=== PATIENT | female | born 1935 | race Caucasian/White ===

== ENCOUNTER 2018-08-20 23:48 | Inpatient (IN) ==
[2018-08-21] MEDS ORDERED: NS 1,000 ML IV ONE ×2 (00:48→20:28)
[2018-08-21 01:54] LABS: BASO# 0.04 X1000 (0.0-0.2); BASO% 0.2 % (0.0-0.8); EOS# 0.29 X1000 (0.0-0.7); EOS% 1.3 % (0.0-10.0); HEMOGLOBIN 12.3 g/dL (12.0-16.0); IMM GRAN# 1.63 X1000 (0.0-0.04); IMM GRAN% 7.4 % (0.0-0.5); LYMPH% 7.2 % (20.5-51.1); MCH 30.1 PG (27-31); MCHC 34.2 g/dL (33-37); MONO# 2.97 X1000 (0.11-0.59); MONO% 13.5 % (1.7-9.3); MPV 9.8 FL (7.4-10.4); NEUT# 15.54 X1000 (1.4-6.5); NEUT% 70.4 % (42.2-75.2); PLT 386 X1000 (130-400); RBC 4.09 XMIL (4.2-5.4); RDW 14.5 % (11.5-14.5); WBC 22.07 X1000 (4.8-10.8)
--- NOTE | 2018-08-21 02:09 | PROVIDER DOCUMENTATION ---
This chart was entered by Beba Mccormack Scribe, acting as scribe for Ruben Parks MD. HPI-General Adult - General Source: family Unable to obtain history due to:: altered (alzheimers) - History of Present Illness -Gen Adult Nature of Presenting Problems: pt is a83 yr old female presenting via EMS from [facility]. family reports pt has had n /v/d x 3 days, hx of Alzheimers declining over last 2 months. pt has been in/ out of hospital multiple times over last few months including 1 admission at [facility] where she was unresponsive/unconscious x several days and discharged back to [facility] still unresponsive, pt has been admitted x 3 for dehydration and UTI at [facility] recently. on exam pt does complain of right side pain. Location of Pain/Injury: reports: abdomen Onset/Duration: reports: unsure Timing: reports: still present Context/Activities at Onset: reports: rest Modifying Factors: improves with: nothing Associated Symptoms: reports: diarrhea, genitourinary problems, vomiting, other (decreased responsivness). denies: fever/chills Similar Symptoms Previously?: Yes Recently seen or treated by another doctor?: Yes <Ruben Parks - Last Filed: 08/21/18 02:06> <Neymar Pedroza - Last Filed: 08/21/18 05:54> - General Chief Complaint: N/V/D Stated Complaint: NVD Time Seen by Provider: 08/20/18 23:56 Allergies/Adverse Reactions: Patient Allergies Allergy/AdvReac Type Severity Reaction Status Date / Time No Known Allergies Allergy Verified 08/21/18 02:47 Home Medications: Home Medication List Medication Instructions Recorded Confirmed Last Taken Type ATORVAstatin [Lipitor] 40 mg PO DAILY 08/21/18 08/21/18 Unknown History Acetaminophen [Tylenol] 325 mg PO PRN PRN 08/21/18 08/21/18 Unknown History Amlodipine Besylate/Benazepril 1 cap PO DAILY 08/21/18 08/21/18 Unknown History [Amlodipine-Benazepril 5-40 mg] Aspirin 325 mg PO DAILY 08/21/18 08/21/18 Unknown History Bismuth Subsalicylate 15 ml PO Q4H PRN 08/21/18 08/21/18 Unknown History [Pepto-Bismol] Calcium Carbonate/Vitamin D3 1 tab PO DAILY 08/21/18 08/21/18 Unknown History [Calcium 600 + Vit D 400 Tablet] Cyanocobalamin 1,000 microgm IM ORDERED 08/21/18 08/21/18 Unknown History Docusate Sodium 100 mg PO DAILY 08/21/18 08/21/18 Unknown History Ferrous Sulfate 325 mg PO TID 08/21/18 08/21/18 Unknown History Guaifenesin [Robitussin] 5 ml PO PRN PRN 08/21/18 08/21/18 Unknown History Hydrochlorothiazide 12.5 mg PO DAILY 08/21/18 08/21/18 Unknown History Hydrocodone/Acetaminophen [[place] 1 tab PO PRN PRN 08/21/18 08/21/18 Unknown History 5-325 Tablet] Lactobacillus Acidophilus 0.5 mg PO DAILY 08/21/18 08/21/18 Unknown History [Acidophilus Probiotic] Mag Hydrox/Al Hydrox/Simeth 30 ml PO PRN PRN 08/21/18 08/21/18 Unknown History [Almacone-2 Liquid] Magnesium Hydroxide [Milk of 1 ml PO PRN PRN 08/21/18 08/21/18 Unknown History Magnesia] Meclizine [Antivert] 12.5 mg PO DAILY 08/21/18 08/21/18 Unknown History Memantine HCl [Memantine HCl ER] 28 mg PO DAILY 08/21/18 08/21/18 Unknown History Metronidazole [Flagyl] 500 mg PO TID 08/21/18 08/21/18 Unknown History Morphine 20 mg IN PRN PRN 08/21/18 08/21/18 Unknown History Omeprazole 40 mg PO DAILY 08/21/18 08/21/18 Unknown History Ondansetron [Zofran] 4 mg PO PRN PRN 08/21/18 08/21/18 Unknown History Polyethylene Glycol 3350 17 gm PO DAILY 08/21/18 08/21/18 Unknown History Potassium Chloride-0.45% NaCl 20 meq PO BID 08/21/18 08/21/18 Unknown History [Potassium Cl 20 Meq-0.45% NaCl] Promethazine [Phenergan] 25 mg PO PRN PRN 08/21/18 08/21/18 Unknown History Rivastigmine [Exelon 13.3MG/24Hrs] 1 patch TOP 08/21/18 Unknown History Sertraline HCl 50 mg PO DAILY 08/21/18 08/21/18 Unknown History Vit D3-Vit K/Berberine/Hops 50,000 unit PO 08/21/18 Unknown History [Ostera Tablet] Review of Systems - Adult - REVIEW OF SYSTEMS - ADULT ROS:: limited per condition Constitutional: reports: no symptoms reported Eyes: reports: no symptoms reported Ears, Nose, Mouth & Throat: reports: no symptoms reported Cardiovascular: reports: no symptoms reported Respiratory: reports: no symptoms reported Gastrointestinal: reports: abdominal pain, diarrhea, vomiting Genitourinary: reports: no symptoms reported Musculoskeletal: reports: no symptoms reported Integumentary: reports: no symptoms reported Neurological: reports: other (increased confusion, decreased responsivness) Psychiatric: reports: no symptoms reported Endocrine: reports: no symptoms reported Hematologic/Lymphatic: reports: no symptoms reported Allergic/Immunologic: reports: no symptoms reported All Other Systems: Reviewed and Negative <Ruben Parks - Last Filed: 08/21/18 02:06> Past History - Adult - PAST MEDICAL HISTORY-ADULT Review of Records: reports: Old Records Reviewed, Nursing Assessment Review, Medications Reviewed, Social history reviewed & non-contributory. Major Childhood Illnesses: reports: denies history Cardiovascular: reports: denies history Respiratory: reports: denies history Gastrointestinal: reports: denies history Obstetrical/Gynecological: reports: denies history Genitourinary: reports: denies history Musculoskeletal: reports: denies history Neurological: reports: denies history Endocrine/Immune: reports: denies history Other Conditions: reports: denies history - IMMUNIZATION STATUS Childhood Immunizations: See Nurse Assessment Flu Vaccine: See Nurse Assessment - FAMILY HISTORY Family History: reviewed, not pertinent - SOCIAL HISTORY Living Situation: care facility <Ruben Parks - Last Filed: 08/21/18 02:06> Physical Exam-General - PHYSICAL EXAM-ADULT Initial Vital Signs Reviewed: Yes - CONSTITUTIONAL General Appearance: no apparent distress, obtunded - HEAD, EARS, NOSE, MOUTH & THROAT HENMT: normocephalic/atraumatic, moist mucous membranes - NECK Neck: supple - RESPIRATORY Respiratory: lungs clear, normal breath sounds - CARDIOVASCULAR Cardiovascular: normal peripheral pulses, regular rate, rhythm - GASTROINTESTINAL (ABDOMEN) Abdominal Exam: normal bowel sounds, soft, tenderness (epigastric tenderness, RUQ tenderness) - LYMPHATIC Lymphatic: no adenopathy - SKIN Integumentary: normal color, normal turgor - NEUROLOGIC Neurologic: grossly normal, no motor/sensory deficits <Ruben Parks - Last Filed: 08/21/18 02:06> Progress - PLAN OF CARE/RESULTS Progress/Plan/Lab Results: Vital Signs - 8 hr 08/20/18 23:48 08/21/18 00:28 Temperature 98.1 F Pulse Rate 95 H Respiratory Rate 15 Blood Pressure 97/66 O2 Sat by Pulse Oximetry 94 L Orders Category Date Time Status Saline Loc NOW Care 08/21/18 00:46 Active CHEST-2 VIEWS [RAD] Stat Exams 08/21/18 00:[address] ABD/PELVIS W/IV CONT ONLY [CT] Stat Exams 08/21/18 00:[address] HEAD W/O CONTRAST [CT] Stat Exams 08/21/18 00:46 Ordered BLOOD CULTURE [BLDCUL] Stat Lab 08/21/18 01:16 Ordered CBC WITH ELECTRONIC DIFF [HEME] Stat Lab 08/21/18 01:16 Ordered COMPREHENSIVE METABOLIC PANEL [CHEM] Stat Lab 08/21/18 01:16 Ordered LACTATE, PLASMA [CHEM] Stat Lab 08/21/18 01:16 Ordered URINALYSIS W/POSS RFLX CULT [URINALYSIS] Stat Lab 08/21/18 00:46 Uncollected 0.9% Sodium Chloride Inj [Ns] 1,000 ml Med 08/21/18 00:48 Active IV 999 mls/hr EKG [EKG] Stat Ther 08/21/18 00:46 Ordered Result Diagrams: 08/21/18 01:16 - CHANGE OF SHIFT REPORT (ED Provider) 1 Report Given and Care Transferred to:: Dr Claire Pedroza Time of Transfer: 02:00 Items Pending: Labs, XRAY Results, CT/MRI Results, Physician Consult/Arrival <Ruben Parks - Last Filed: 08/21/18 02:06> - PLAN OF CARE/RESULTS Progress/Plan/Lab Results: Vital Signs - 8 hr 08/20/18 23:48 08/21/18 00:28 08/21/18 02:21 Temperature 98.1 F Pulse Rate 95 H 88 Respiratory Rate 15 Blood Pressure 97/66 O2 Sat by Pulse Oximetry 94 L 95 Laboratory Results - last 24 hr 08/21/18 08/21/18 08/21/18 01:06 01:06 01:16 WBC 22.07 H RBC 4.09 L Hgb 12.3 Hct 36.0 L MCV 88.0 MCH 30.1 MCHC 34.2 RDW Std Deviation 14.5 Plt Count 386 MPV 9.8 Immature Gran % (Auto) 7.4 H Neut % (Auto) 70.4 Lymph % (Auto) 7.2 L [place] % (Auto) 13.5 H Eos % (Auto) 1.3 Baso % (Auto) 0.2 Immature Gran # (Auto) 1.63 H Neut # (Auto) 15.54 H Lymph # (Auto) 1.60 [place] # (Auto) 2.97 H Eos # (Auto) 0.29 Baso # (Auto) 0.04 Sodium 135 L Potassium 4.8 Chloride 100 Carbon Dioxide 14 L Anion Gap 21 BUN 58 H Creatinine 4.3 H Estimated GFR/1.73 m2 10 BUN/Creatinine Ratio 13 Glucose 147 H Calculated Osmolality 289 Calcium 9.2 Total Bilirubin 0.40 AST 11 ALT 11 Alkaline Phosphatase 62 Total Protein 6.2 L Albumin 2.9 L Globulin 3.0 Albumin/Globulin Ratio 1.0 Plasma Lactate 1.4 Urine Source Urine Color Urine Clarity Urine Turbidity Urine pH Ur Specific [place] Urine Protein Ur Glucose (Stick) Urine Ketones Ur Ketones (Stick) Urine Blood Urine Nitrite Urine Bilirubin Urine Urobilinogen Urobilinogen Dipstick Urine Leukocytes Urine WBC (Auto) Urine RBC (Auto) U Epithel Cells (Auto) Urine Bacteria (Auto) Urine Microscopic RBC Urine WBC Urine Microscopic WBC Ur Epithelial Cells Urine Bacteria Urine Glucose 08/21/18 08/21/18 03:20 03:20 WBC RBC Hgb Hct MCV MCH MCHC RDW Std Deviation Plt Count MPV Immature Gran % (Auto) Neut % (Auto) Lymph % (Auto) [place] % (Auto) Eos % (Auto) Baso % (Auto) Immature Gran # (Auto) Neut # (Auto) Lymph # (Auto) [place] # (Auto) Eos # (Auto) Baso # (Auto) Sodium Potassium Chloride Carbon Dioxide Anion Gap BUN Creatinine Estimated GFR/1.73 m2 BUN/Creatinine Ratio Glucose Calculated Osmolality Calcium Total Bilirubin AST ALT Alkaline Phosphatase Total Protein Albumin Globulin Albumin/Globulin Ratio Plasma Lactate Urine Source Cancelled CATH Urine Color Cancelled YELLOW Urine Clarity CLEAR Urine Turbidity Cancelled Urine pH Cancelled 5.0 Ur Specific [place] Cancelled 1.025 Urine Protein Cancelled TRACE A Ur Glucose (Stick) Cancelled Urine Ketones TRACE Ur Ketones (Stick) Cancelled Urine Blood Cancelled NEGATIVE Urine Nitrite Cancelled NEGATIVE Urine Bilirubin Cancelled NEGATIVE Urine Urobilinogen NORMAL Urobilinogen Dipstick Cancelled Urine Leukocytes Cancelled Urine WBC (Auto) Cancelled Urine RBC (Auto) Cancelled U Epithel Cells (Auto) Cancelled Urine Bacteria (Auto) Cancelled Urine Microscopic RBC <10 Urine WBC 1+ A Urine Microscopic WBC <10 Ur Epithelial Cells <10 Urine Bacteria 4+ Urine Glucose NEGATIVE Orders Category Date Time Status [facility] Routine AdmDCTranf 08/21/18 05:12 Active Activity - Up with Assistance ORDERED Care 08/21/18 05:12 Active Intake and Output-Strict ORDERED Care 08/21/18 05:12 Active Resuscitation Status Routine Care 08/21/18 05:16 Ordered Saline Loc NOW Care 08/21/18 00:46 Active Vital Signs Order Q 8-HR ASSESS Care 08/21/18 05:12 Active Z-Document. for Tele Applied ORDERED Care 08/21/18 05:13 Active NPO Diet 08/21/18 05:14 Active CHEST-PORTABLE [RAD] Stat Exams 08/21/18 03:[address] ABDOMEN/PELVIS W/O CONTRAST [CT] Stat Exams 08/21/18 03:[address] HEAD W/O CONTRAST [CT] Stat Exams 08/21/18 00:46 Completed BLOOD CULTURE [BLDCUL] Stat Lab 08/21/18 01:16 Ordered CBC WITH DIFF [HEME] Routine Lab 08/22/18 06:00 Ordered CBC WITH ELECTRONIC DIFF [HEME] Stat Lab 08/21/18 01:16 Completed COMPREHENSIVE METABOLIC PANEL [CHEM] Routine Lab 08/22/18 06:00 Ordered COMPREHENSIVE METABOLIC PANEL [CHEM] Stat Lab 08/21/18 01:06 Completed LACTATE, PLASMA [CHEM] Stat Lab 08/21/18 01:06 Completed PROTIME WITH INR [COAG] Routine Lab 08/22/18 06:[address] W/POSS RFLX CULT [URINALYSIS] Stat Lab 08/21/18 03:20 Completed URINE CULTURE [RM] Routine Lab 08/21/18 03:51 Ordered 0.9% Sodium Chloride Inj [Ns] 1,000 ml Med 08/21/18 05:15 Ordered IV 100 mls/hr 0.9% Sodium Chloride Inj [Ns] 1,000 ml Med 08/21/18 00:48 Discontinued IV 999 mls/hr 0.9% Sodium Chloride Inj [Ns] 500 ml Med 08/21/18 03:15 Discontinued IV 999 mls/hr Acetaminophen [Tylenol] Med 08/21/18 05:12 Ordered 650 mg PO Q6H PRN PRN CefTRIAXONE [Rocephin] 1 gm Med 08/21/18 03:15 Discontinued 0.9% Sodium Chloride Inj [Ns] 50 ml IV NOW Heparin Med 08/21/18 05:15 Ordered 5,000 unit SUBQ Q12H Piperacillin/Tazobactam [Zosyn] 2.25 gm Med 08/21/18 05:15 Ordered 0.9% Sodium Chloride Inj [Ns] 50 ml IV Q6H Promethazine [Phenergan] Med 08/21/18 05:12 Ordered 12.5 mg PO Q6H PRN PRN Telemetry [OM.EQ] Routine Oth 08/21/18 05:12 Active EKG [EKG] Stat Ther 08/21/18 00:46 Ordered Result Diagrams: 08/21/18 01:16 08/21/18 01:06 - CONSULTS/PCP/HOSPITALIST Notification #1 *Consult/PCP/Hospitalist*: DR VARMA Time Discussed: 05:18 Consult Disposition: Admit (ICU) <Neymar Pedroza - Last Filed: 08/21/18 05:54> Departure <Ruben Parks - Last Filed: 08/21/18 02:06> - Departure Date of Disposition Decision: 08/21/18 Time of Disposition Decision: 05:52 Certified Medical Emergency: Emergent - Critical Care Note This patient required my direct & personal management of CC.: Yes Total Time (mins): 33 Critical Care Statement: This patient required my direct personal management to treat or rule out processes, the absence of which, could potentiallly result in sudden, clinically significant life or limb threatening deterioration. <Neymar Pedroza - Last Filed: 08/21/18 05:54> - Departure DIAGNOSIS: Altered mental status, Colitis, Leukocytosis, Dehydration Disposition: ADMITTED INPATIENT 09 Condition: Fair Referrals and Follow-Ups: Louie Bunch MD [Primary Care Provider] - Attestation - Physician/ JAREN Attestation Patient care was provided by Advanced Practice Provider:: No The physician spent face to face time with patient:: Yes Advanced Practice Provider documentation review:: Supervising physician onsite and consulted in the evaluation and care of this patient. The physician did have a face to face encounter with the patient. <Ruben Parks - Last Filed: 08/21/18 02:06> - Physician/ JAREN Attestation Patient care was provided by Advanced Practice Provider:: No The physician spent face to face time with patient:: Yes Advanced Practice Provider documentation review:: Supervising physician onsite and consulted in the evaluation and care of this patient. The physician did have a face to face encounter with the patient. <Neymar Pedroza - Last Filed: 08/21/18 05:54> This chart was documented by the indicated scribe, (Beba Mccormack Scribe) and accurately reflects the services I performed and decisions made by , Ruben Parks MD, as attested by the provider's signature.
[2018-08-21 02:53] LABS: ALBUMIN 2.9 g/dL (3.5-5.0); CALCIUM 9.2 mg/dL (8.8-10.2); CREATININE 4.3 mg/dL (0.5-0.9); POTASSIUM 4.8 mmol/L (3.5-5.1); TOTAL BILIRUBIN 0.4 mg/dL (0.20-1.00); TOTAL PROTEIN 6.2 g/dL (6.3-8.3)
[2018-08-21] MEDS ORDERED: ROCEPHIN 1 GM in NS 50 ML IV ONE (03:15)
[2018-08-21] MEDS ORDERED: NS 500 ML IV ONE (03:15)
[2018-08-21 03:49] LABS: URINE BACTERIA 4+ /HFP; URINE EPITHELIAL CELLS <10 /HPF (<10); URINE RBC <10 /HPF (<10); URINE SOURCE CATH; URINE WBC <10 /HPF (<10)
[2018-08-21 03:50] LABS: BILIRUBIN URINE NEGATIVE (NEGATIVE); BLOOD URINE NEGATIVE (NEGATIVE); CLARITY CLEAR (CLEAR); COLOR YELLOW; GLUCOSE URINE NEGATIVE (NEGATIVE); KETONE URINE TRACE mg/dL (NEGATIVE); LEUKOCYTES URINE 1+ (NEGATIVE); NITRITE URINE NEGATIVE (NEGATIVE); PROTEIN URINE TRACE mg/dL (NEGATIVE); SP GRAVITY URINE 1.025; UROBILINOGEN URINE NORMAL
--- NOTE | 2018-08-21 04:22 | Diag Imaging Result Doc PS360 ---
EXAM: CT HEAD W/O CONTRAST HISTORY: ams TECHNIQUE: CT head without contrast COMPARISON: None. FINDINGS: No parenchymal hemorrhage. No epidural or subdural hematoma. No subarachnoid hemorrhage. There is atrophy. No mass identified on this noncontrasted exam. No hydrocephalus. No sinus opacification. IMPRESSION: 1.No hemorrhage 2.Mild atrophy This exam was performed using automated exposure control, adjustment of mA or kV according to patient size, and/or use of iterative reconstruction technique. Electronically signed by Cristhian Billings 08/21/2018 4:19 AM
--- NOTE | 2018-08-21 04:30 | Diag Imaging Result Doc PS360 ---
EXAM: CT ABDOMEN/PELVIS W/O CONTRAST HISTORY: TENDER LOW ABD TECHNIQUE: CT abdomen and pelvis without intravenous contrast COMPARISON: 03/02/2012 FINDINGS: No calcified gallstones or adjacent inflammation. Normal noncontrasted liver. Normal spleen, pancreas, and adrenal glands. No perinephric inflammation. No renal stones. No hydronephrosis. No aortic aneurysm. There is diffuse colonic wall thickening with adjacent inflammation from the cecum to the rectum. The small bowel loops appear normal. Trace fluid. The uterus has been removed. No pelvic mass. The urinary bladder is not distended. IMPRESSION: Diffuse colitis This exam was performed using automated exposure control, adjustment of mA or kV according to patient size, and/or use of iterative reconstruction technique. Electronically signed by Cristhian Billings 08/21/2018 4:28 AM
--- NOTE | 2018-08-21 04:34 | Diag Imaging Result Doc PS360 ---
EXAM: CHEST-PORTABLE HISTORY: TENDER LOW ABD TECHNIQUE: Portable chest single view COMPARISON: 06/25/2018 FINDINGS: The lungs are well expanded. The heart is not enlarged. The vessels are not distended. There are no infiltrates. No effusion identified. IMPRESSION: Negative exam. Electronically signed by Cristhian Billings 08/21/2018 4:32 AM
[2018-08-21] MEDS ORDERED: PHENERGAN PO PRN (05:12)
[2018-08-21] MEDS ORDERED: TYLENOL PO PRN (05:12)
[2018-08-21] MEDS ORDERED: NS 0 ML ONE (05:26)
[2018-08-21] MEDS: HEPARIN SUBQ SCH ×2 (05:39→16:32)
[2018-08-21] MEDS: NS 1,000 ML IV SCH ×3 (05:40→20:56)
[2018-08-21] MEDS: ZOSYN 2.25 GM in NS 50 ML IV SCH ×4 (05:41→23:54)
[2018-08-21 05:47] LABS: ACETAMINOPHEN < 1.2 ug/mL (10-30); SALICYLATES < 3.00 mg/dL (3-10)
[2018-08-21 06:08] LABS: UR CREAT RANDOM 300.1 mg/dL (11-20)
--- NOTE | 2018-08-21 06:34 | EKG Report ---
Test Performed on : 08/21/2018 00:54:22 AM Test Reason : ams Blood Pressure : / mmHG Vent. Rate : 081 BPM Atrial Rate : 081 BPM P-R Int : 134 ms QRS Dur : 084 ms QT Int : 380 ms P-R-T Axes : 085 072 068 degrees QTc Int : 441 ms Sinus rhythm. with premature atrial complexes. Otherwise normal ECG When compared with ECG of 03-JUL-2010 15:14, premature atrial complexes. are now present Unconfirmed Result
[2018-08-21] MEDS ORDERED: TYLENOL LIQUID ONE (07:50)
--- NOTE | 2018-08-21 09:02 | Diag Imaging Result Doc PS360 ---
EXAM: US RENAL 2 (RETROPER) COMPLETE - 08/21/2018 HISTORY: tiffany/arf TECHNIQUE: Bilateral renal ultrasound COMPARISON: 09/16/2011 ultrasound abdomen FINDINGS: The right kidney measures 9 x 3.5 x 4.5 cm in size. The left kidney measures 9.8 x 3.8 x 4.5 cm in size. There is no renal mass, stone, or hydronephrosis identified. Images of the urinary bladder demonstrate no lesion. IMPRESSION: No visible abnormality. No hydronephrosis. Electronically signed by Balaji Marshall 08/21/2018 9:00 AM
--- NOTE | 2018-08-21 10:45 | EKG Report ---
Test Performed on : 08/21/2018 06:04:13 AM Test Reason : psych Blood Pressure : / mmHG Vent. Rate : 088 BPM Atrial Rate : 088 BPM P-R Int : 134 ms QRS Dur : 084 ms QT Int : 362 ms P-R-T Axes : 087 077 074 degrees QTc Int : 438 ms Normal sinus rhythm. Normal ECG When compared with ECG of 21-AUG-2018 00:54, (Unconfirmed) premature atrial complexes. are no longer present Unconfirmed Result
--- NOTE | 2018-08-21 11:44 | HISTORY AND PHYSICAL ---
PRIMARY CARE PHYSICIAN: [facility] facility physician. CHIEF COMPLAINT: Nausea, vomiting and diarrhea for three days that progressively worsened. HISTORY OF PRESENT ILLNESS: This is an 83-year-old female who presents to [facility] ER via EMS from [facility] [place]. Family reports that the patient has had nausea, vomiting and diarrhea for three days that has progressively worsened. It is noted that she has been declining since [place] time when she got diagnosed with a urinary tract infection, and was sent to [facility] and was unresponsive for several days, but then discharged back to the senior living still unresponsive. She has been admitted three different times for dehydration and UTI at [facility] recently also. During this evaluation in the ER, her white blood cell count was noted to be 22.07. BUN was 58 with a creatinine of 4.3. Urinalysis was negative except for 1+ white blood cells, 4+ bacteria. CT of the abdomen and pelvis showed a diffuse colitis so she has been admitted for further evaluation and treatment. PAST MEDICAL HISTORY: Hypertension, hyperlipidemia, constipation, iron deficiency, Alzheimer's dementia, GERD, depression, and vitamin D deficiency. PAST SURGICAL HISTORY: Unknown. FAMILY HISTORY: Reviewed and noncontributory. SOCIAL HISTORY: She currently lives in a long-term care facility. Denies any tobacco, alcohol or illicit drug use. ALLERGIES: She has no known drug allergies. HOME MEDICATIONS: A current list will need to be obtained and reviewed. We will restart as appropriate. Nursing to update and confirm home medications. LABORATORY DATA: White blood cell count of 22.07, hemoglobin 12.3, hematocrit 36, and platelets 386,000. Sodium 135, potassium 4.8, chloride 100, CO2 14, BUN of 58, creatinine 4.3, and glucose 147. Plasma lactate of 1.4. Urinalysis with 1+ white blood cells, 4+ bacteria. Random creatinine of 300.1, random sodium 13, random BUN 12. Salicylate level was less than 3. Tylenol level less than 1.2. Acetone level was negative. Head CT showed no hemorrhage and mild atrophy. Abdomen and pelvic CT showed diffuse colitis. Chest x-ray was with negative exam. Renal ultrasound showed no visible abnormality. No hydronephrosis. EKG on arrival showed sinus rhythm with PACs at 81. REVIEW OF SYSTEMS: Unable to obtain from patient. PHYSICAL EXAMINATION: VITAL SIGNS: On arrival, she had a temperature of 98.1 degrees, pulse 95, respirations 15, blood pressure was 97/66, saturating 94% on room air. Currently, blood pressure is up to 115/60. GENERAL: This is an 83-year-old female who is lying in the bed and answers questions appropriately. HEENT: Normocephalic, atraumatic. Normal ENT inspection. Oropharynx and nares are clear. EYES: Pupils are equal, round, and reactive to light and accommodation. Extraocular movements are intact. NECK: Normal inspection. Normal range of motion. LUNGS: Clear to auscultation bilaterally with equal lung expansion and chest wall movement. ABDOMEN: Soft. There are some mild tenderness to palpation as patient is noted to grimace with palpation mildly. Bowel sounds are present x4 quadrants. MUSCULOSKELETAL: Unable to assess strength at this time due to altered mental status. NEUROLOGICAL: Cranial nerves 2-12 appear grossly intact. ASSESSMENT: 1. Colitis. 2. Leukocytosis secondary to #1. 3. Acute kidney injury. 4. Altered mental status with metabolic encephalopathy, multifactorial. PLAN: She has been admitted to the medical unit at [facility], and placed on telemetry. NPO. The patient placed on Zosyn at 2.25 g IV q.6 and Flagyl 500 mg IV q.8. We will have nursing to update and confirm her home medications. She is on heparin 5000 units subcutaneously q.12, normal saline at 100 mL an hour. We will recheck a CBC, CMP, PT with INR in the morning. We are going to do an EOS urine smear and urine culture, and blood cultures x2 are pending. Further orders after being seen by attending. Dictated by CALE Yang for Alexandre Bueno MD cc: CALE Yang MD
[2018-08-21] MEDS: FLAGYL 500 MG/NS 500 MG/100 ML IVPB IV SCH ×2 (11:54→20:38)
--- NOTE | 2018-08-21 16:26 | HISTORY AND PHYSICAL ---
ADDENDUM: I saw the patient [id number] and agree with the assessment and plan of nurse practitioner, Natasha Lemons. This is an 83-year-old female who is admitted with sepsis secondary to colitis. She has significant white blood cell count elevation of 22,000 with 70% neutrophils. She has been admitted and has been started on IV fluids. She will also receive Zosyn and metronidazole intravenously. Supportive care will be provided to her and we are going to keep her n.p.o. at this time and hold all her oral medications. Further recommendations will be given as per hospital course. cc: Alexandre Bueno MD
[2018-08-22] MEDS: FLAGYL 500 MG/NS 500 MG/100 ML IVPB IV SCH ×3 (03:47→20:58)
[2018-08-22] MEDS: NS 1,000 ML IV SCH ×2 (03:47→13:07)
[2018-08-22] MEDS ORDERED: NS 500 ML IV ONE (04:08)
[2018-08-22 05:43] LABS: BASO# 0.03 X1000 (0.0-0.2); BASO% 0.1 % (0.0-0.8); EOS# 0.19 X1000 (0.0-0.7); EOS% 0.7 % (0.0-10.0); HEMATOCRIT 32.8 % (37.0-47.0); HEMOGLOBIN 10.6 g/dL (12.0-16.0); IMM GRAN# 0.26 X1000 (0.0-0.04); LYMPH# 0.95 X1000 (1.2-3.4); LYMPH% 3.5 % (20.5-51.1); MCH 29.5 PG (27-31); MCHC 32.3 g/dL (33-37); MCV 91.4 FL (81-99); MONO# 1.88 X1000 (0.11-0.59); MPV 10.3 FL (7.4-10.4); NEUT# 23.46 X1000 (1.4-6.5); NEUT% 87.7 % (42.2-75.2); PLT 295 X1000 (130-400); RBC 3.59 XMIL (4.2-5.4); RDW 15.1 % (11.5-14.5); WBC 26.77 X1000 (4.8-10.8)
[2018-08-22] MEDS: HEPARIN SUBQ SCH ×2 (05:50→17:24)
[2018-08-22] MEDS: ZOSYN 2.25 GM in NS 50 ML IV SCH ×4 (05:51→23:29)
[2018-08-22 06:09] LABS: INR 1.22
[2018-08-22 06:29] LABS: ALBUMIN 1.6 g/dL (3.5-5.0); CALCIUM 7.3 mg/dL (8.8-10.2); CREATININE 2.4 mg/dL (0.5-0.9); POTASSIUM 3.9 mmol/L (3.5-5.1); TOTAL BILIRUBIN 0.2 mg/dL (0.20-1.00); TOTAL PROTEIN 4.3 g/dL (6.3-8.3)
[2018-08-22 07:52] LABS: BANDS 4 % (0-1); LYMPHS 10 % (21-51); MONO 2 % (1-9); SEGS 84 % (42-75)
[2018-08-22] MEDS ORDERED: ZOFRAN IV PRN (09:33)
[2018-08-22] MEDS ORDERED: ZOSYN ONE (09:58)
--- NOTE | 2018-08-22 14:23 | PROGRESS NOTE ---
DATE: 08/22/2018 SUBJECTIVE: The patient remains somewhat nonresponsive, although she does respond to painful stimuli. She is not able to communicate, however. OBJECTIVE: Vital signs: Temperature is 98.5 degrees, pulse 84 per minute, respiratory rate 24 per minute, blood pressure 112/46, pulse oximetry 92% on room air. General: The patient remains kind of comatose, replying only to painful stimuli. She is not able to communicate. Cardiovascular: First and second heart sounds are audible without any murmurs or gallops. Respiratory: No respiratory distress noted. Bilateral lung air entry is moderately decreased, but there are no rales or rhonchi present on auscultation. Gastrointestinal: Abdomen is soft and moderately tender on deep palpation all over. No bowel sounds are present. DIAGNOSTIC DATA: CBC shows WBC count of 26.77 with 87.7% neutrophils. Hemoglobin and hematocrit are 10.6 and 32.8, respectively. Chemistry showed BUN and creatinine of 53 and 2.4, respectively. This is an improvement of BUN and creatinine of 58 and 4.3, respectively, done only yesterday. Albumin level is low at 1.6. Calcium levels were found to be low at 7.3 as well. The rest of the chemistry is nondiagnostic. IMPRESSION: 1. Septic shock. 2. Metabolic encephalopathy. 3. Acute kidney injury. 4. Colitis. PLAN: The patient's condition remains critically, although it is slowly and gradually getting better. She will continue with Zosyn and Flagyl intravenously, and we will continue to provide her fluid resuscitation. I had a lengthy discussion with her son who agrees with the treatment being provided here and is completely satisfied. I had a discussion with him about her resuscitation status, and he confirmed that the patient is a DNR level 1. We will continue providing her supportive care, and I believe her condition should start getting better even further in the next 1 to 2 days. cc: Alexandre Bueno MD
[2018-08-23] MEDS: NS 1,000 ML IV SCH ×2 (01:55→06:34)
[2018-08-23] MEDS: FLAGYL 500 MG/NS 500 MG/100 ML IVPB IV SCH ×3 (03:33→22:00)
[2018-08-23] MEDS ORDERED: TYLENOL LIQUID PO PRN (04:19)
[2018-08-23] MEDS: HEPARIN SUBQ SCH ×2 (05:07→17:10)
[2018-08-23] MEDS: ZOSYN 2.25 GM in NS 50 ML IV SCH ×2 (05:07→10:44)
[2018-08-23 07:19] LABS: BASO# 0.04 X1000 (0.0-0.2); BASO% 0.1 % (0.0-0.8); EOS# 0.01 X1000 (0.0-0.7); HEMATOCRIT 34.5 % (37.0-47.0); HEMOGLOBIN 11.3 g/dL (12.0-16.0); LYMPH# 1.02 X1000 (1.2-3.4); MCHC 32.8 g/dL (33-37); MCV 91.5 FL (81-99); MONO# 1.41 X1000 (0.11-0.59); MONO% 4.2 % (1.7-9.3); MPV 10.2 FL (7.4-10.4); NEUT# 30.02 X1000 (1.4-6.5); NEUT% 89.7 % (42.2-75.2); PLT 322 X1000 (130-400); RBC 3.77 XMIL (4.2-5.4); RDW 15.7 % (11.5-14.5)
[2018-08-23 07:58] LABS: ALBUMIN 2.1 g/dL (3.5-5.0); CREATININE 1.8 mg/dL (0.5-0.9); POTASSIUM 3.5 mmol/L (3.5-5.1); TOTAL BILIRUBIN 0.2 mg/dL (0.20-1.00); TOTAL PROTEIN 4.4 g/dL (6.3-8.3)
[2018-08-23 08:13] LABS: BANDS 5 % (0-1); LYMPHS 4 % (21-51); MONO 1 % (1-9); SEGS 90 % (42-75)
[2018-08-23 08:14] LABS: HYPOCHROM OCCASIONAL; POIKILOCYTOSIS 2+
[2018-08-23 08:15] LABS: BURR CELLS 1+; OVALOCYTES 1+
[2018-08-23] MEDS: MORPHINE IV PRN ×3 (10:44→23:25)
[2018-08-23] MEDS: 1/2 NS 1,000 ML IV SCH ×2 (10:54→23:26)
--- NOTE | 2018-08-23 11:54 | PROGRESS NOTE ---
DATE: 08/23/2018 SUBJECTIVE: Patient remains somewhat comatose, but she is more responding this morning. Family is at bed side and do not report any other issues, but they do report that there is some improvement in mental status. OBJECTIVE: Vital Signs: Temperature 97.9 degrees, pulse 91 per minute, respiratory rate 22 per minute, blood pressure 151/80, pulse oximetry 100% on room air. General: Patient is comatose, but does not appear to be in any acute distress otherwise. Cardiovascular System: First and second heart sounds are audible without any murmurs or gallops. Respiratory System: Bilateral lung air entry is moderately decreased, but there are no rales or rhonchi present on auscultation. Abdomen: Soft. Bowel sounds are present. DIAGNOSTIC DATA: CBC shows WBC count of 33.50, neutrophils are 89.7%. This is worse as compared to yesterday when her white blood cell count was 26.77. Chemistry showed improvement of BUN and creatinine of 54 and 1.8, respectively. This is in comparison to BUN and creatinine of 53 and 2.4 yesterday. Her sodium levels have gone up to 154 from 145 yesterday. Rest of the comprehensive metabolic panel is nondiagnostic. IMPRESSION: 1. Metabolic encephalopathy. 2. Sepsis secondary to colitis. 3. Acute kidney injury that is getting better. 4. Hypernatremia. PLAN: We are going to continue her on Zosyn intravenously along with metronidazole intravenously. We also going to continue with IV fluid, but I am going to change it to half-normal saline at 100 mL an hour. We are going to continue with venous thromboembolism prophylaxis with heparin 5000 units subcutaneously every 12 hours, and we are going to give her morphine sulfate on as-needed basis for pain relief. We are also going to contact Infectious Diseases to further assist us in taking care of this patient. Further recommendations will be given as per hospital course. cc: Alexandre Bueno MD
[2018-08-23] MEDS: ZOSYN 3.375 GM in NS 50 ML IV SCH ×2 (17:10→23:18)
[2018-08-24] MEDS: FLAGYL 500 MG/NS 500 MG/100 ML IVPB IV SCH ×2 (04:24→14:13)
[2018-08-24] MEDS: HEPARIN SUBQ SCH ×2 (04:26→16:45)
[2018-08-24] MEDS: ZOSYN 3.375 GM in NS 50 ML IV SCH (05:04)
[2018-08-24 07:40] LABS: BASO# 0.03 X1000 (0.0-0.2); BASO% 0.1 % (0.0-0.8); EOS# 0.02 X1000 (0.0-0.7); EOS% 0.1 % (0.0-10.0); HEMATOCRIT 35.4 % (37.0-47.0); HEMOGLOBIN 11.5 g/dL (12.0-16.0); IMM GRAN# 0.59 X1000 (0.0-0.04); IMM GRAN% 2.2 % (0.0-0.5); LYMPH% 4.6 % (20.5-51.1); MCH 29.6 PG (27-31); MCHC 32.5 g/dL (33-37); MONO# 1.58 X1000 (0.11-0.59); MPV 10.4 FL (7.4-10.4); NEUT# 22.95 X1000 (1.4-6.5); PLT 333 X1000 (130-400); RBC 3.89 XMIL (4.2-5.4); RDW 15.9 % (11.5-14.5); WBC 26.37 X1000 (4.8-10.8)
[2018-08-24 08:07] LABS: CALCIUM 8.2 mg/dL (8.8-10.2); CREATININE 1.5 mg/dL (0.5-0.9); POTASSIUM 3.4 mmol/L (3.5-5.1)
[2018-08-24 08:48] LABS: ANISOCYTOSIS 1+; BANDS 2 % (0-1); LYMPHS 3 % (21-51); MONO 5 % (1-9); SEGS 90 % (42-75)
[2018-08-24] MEDS: MORPHINE IV PRN ×2 (09:31→16:45)
[2018-08-24] MEDS: 1/2 NS 1,000 ML IV SCH (09:39)
[2018-08-24] MEDS ORDERED: LEVAQUIN PO SCH (10:45)
[2018-08-24] MEDS ORDERED: FLAGYL PO SCH (13:00)
[2018-08-24] MEDS: LEVAQUIN 500 MG/D5W 500 MG/100 ML IVPB IV SCH (14:13)
[2018-08-24] MEDS ORDERED: DILAUDID IV PRN (19:55)
--- NOTE | 2018-08-24 23:26 | PROGRESS NOTE ---
DATE: 08/24/2018 SUBJECTIVE: Patient remains somewhat nonverbal but after talking the family, she typically is verbal and is able to talk with them although she has had several episodes of illness over the last few months. PHYSICAL: Temperature 99, pulse 102, respiratory 20, BP 121/79.General: Patient is lying in the bed, she does move all extremities. She is nonverbal does not answer questions, not respond to commands, does not respond well to even painful stimuli. HEENT: Normocephalic. Neck: Supple. CV: Regular rate. Chest: Decreased breath sounds, nonlabored no crackles, no wheezing. Abdomen: Soft, nondistended. Extremities: Moves all extremities, has no edema. Neuro: Unable to assess. Patient does not answer questions or follow commands. ASSESSMENT: 1. Klebsiella pneumoniae urinary tract infection resistant to ampicillin otherwise sensitive. 2. Metabolic encephalopathy. 3. Colitis. 4. Acute kidney injury continues to improve, creatinine is down to 1.5. 5. Leukocytosis. 6. Sepsis secondary to urinary tract infection. 7. Hypokalemia . 8. Hypernatremia. 9. Metabolic acidosis. PLAN: Will continue patient in the hospital, will change antibiotics to Levaquin as she has Klebsiella pneumoniae which is more sensitive to Levaquin and will follow. cc: Billy Crowe MD
--- NOTE | 2018-08-24 23:28 | PROGRESS NOTE ---
DATE: 08/24/2018 Approximately 42 minutes was spent in consultation with the family regarding DNR, hospice care, comfort care. We will continue patient in the hospital, continue antibiotics for now, over the next 2 to 3 days if she does not start waking up then we will switch to comfort care as opposed to giving her IV nutrition and will follow. Patient's family is aware, they note that she does appear to be in pain we will switch to Dilaudid. They are fully aware that pain medication can and does decrease respiratory rate and can cause respiratory suppression which of course can lead to respiratory failure and . We will continue current course. cc: Billy Crowe MD
[2018-08-25] MEDS: FLAGYL 500 MG/NS 500 MG/100 ML IVPB IV SCH ×5 (00:20→23:29)
[2018-08-25] MEDS: 1/2 NS 1,000 ML IV SCH ×4 (00:24→18:05)
[2018-08-25] MEDS: HEPARIN SUBQ SCH ×2 (05:14→17:31)
[2018-08-25 06:36] LABS: HEMATOCRIT 36.9 % (37.0-47.0); HEMOGLOBIN 11.7 g/dL (12.0-16.0); MCH 29.3 PG (27-31); MCHC 31.7 g/dL (33-37); MCV 92.3 FL (81-99); MPV 10.3 FL (7.4-10.4); RDW 16.3 % (11.5-14.5); WBC 21.67 X1000 (4.8-10.8)
[2018-08-25 06:55] LABS: POTASSIUM 4.2 mmol/L (3.5-5.1)
[2018-08-25 07:18] LABS: CALCIUM 8.5 mg/dL (8.8-10.2); CREATININE 1.3 mg/dL (0.5-0.9); MAGNESIUM 2.2 mg/dL (1.5-2.7); TOTAL BILIRUBIN 0.2 mg/dL (0.20-1.00); TOTAL PROTEIN 4.5 g/dL (6.3-8.3)
[2018-08-25] MEDS ORDERED: DILAUDID IV PRN (07:47)
[2018-08-25] MEDS: DILAUDID IV PRN ×3 (10:39→23:38)
[2018-08-25] MEDS: LEVAQUIN 500 MG/D5W 500 MG/100 ML IVPB IV SCH (13:11)
--- NOTE | 2018-08-25 23:53 | PROGRESS NOTE ---
DATE: 08/25/2018 SUBJECTIVE: Patient actually is a little bit better this morning. She does open her eyes and is able to look at me when spoken to. She, however, is still nonverbal, still unable to communicate. Still does not follow commands. PHYSICAL EXAM: Temperature 98.2, pulse 102, respiratory 18, BP 106/56.General: Patient is in no respiratory distress, but she is still somewhat ill-appearing. HEENT: Normocephalic. Neck: Supple. CARDIOVASCULAR: Regular rate. No murmurs. Chest: Clear. No crackles, although decreased air movement bilaterally. Abdomen: Soft, nondistended. Extremities : Moves all extremities. ASSESSMENT AND PLAN: 1. Klebsiella pneumoniae urinary tract infection. 2. Metabolic encephalopathy. 3. Sepsis secondary to Klebsiella pneumoniae urinary tract infection. 4. Acute kidney injury. 5. Hypernatremia. 6. Leukocytosis. White count has actually started improving with the change in her antibiotics. She has decreased from 33,000 currently down to 21,000. Her sodium has improved. Her potassium is improved. Creatinine is decreased from 4.3 down to 1.5. Unfortunately, she is still not back to her baseline. Dementia certainly is causing a part of her difficulties. cc: Billy Crowe MD [facility]
[2018-08-26] MEDS: 1/2 NS 1,000 ML IV SCH ×3 (05:16→19:23)
[2018-08-26] MEDS: HEPARIN SUBQ SCH ×2 (05:17→17:17)
[2018-08-26] MEDS: FLAGYL 500 MG/NS 500 MG/100 ML IVPB IV SCH ×3 (05:17→17:56)
[2018-08-26 07:36] LABS: HEMATOCRIT 35.3 % (37.0-47.0); MCH 29.1 PG (27-31); MCHC 31.2 g/dL (33-37); MCV 93.4 FL (81-99); MPV 10.2 FL (7.4-10.4); RBC 3.78 XMIL (4.2-5.4); RDW 16.6 % (11.5-14.5); WBC 19.73 X1000 (4.8-10.8)
[2018-08-26 07:39] LABS: CALCIUM 8.2 mg/dL (8.8-10.2); CREATININE 1.2 mg/dL (0.5-0.9); POTASSIUM 3.8 mmol/L (3.5-5.1)
[2018-08-26] MEDS: DILAUDID IV PRN ×3 (10:39→20:10)
[2018-08-26] MEDS: LEVAQUIN 500 MG/D5W 500 MG/100 ML IVPB IV SCH (13:55)
--- NOTE | 2018-08-26 22:14 | PROGRESS NOTE ---
DATE: 08/26/2018 SUBJECTIVE: Klebsiella pneumoniae urinary tract infection. Patient has been on Bactrim for 8 days. Sepsis secondary to colitis. PHYSICAL EXAM: Vital Signs: Temperature 98.3, pulse 104, respiratory 20, BP 133/89. General: Patient is awake, alert. She is in no current respiratory distress, although she is still somewhat ill-appearing, does not answer questions with intelligible answers. She does mumble when stimulated. HEENT: Normocephalic. Neck: Supple. CARDIOVASCULAR: Regular rate. Chest: Clear, no crackles, no wheezing. Abdomen: Soft. Extremities: Moves all extremities. ASSESSMENT: 1. Klebsiella pneumoniae urinary tract infection, resistant to ampicillin, otherwise sensitive. 2. Leukocytosis, improved. White count down to 19. 3. Hypokalemia, resolved. 4. Acute renal failure. Creatinine is 4.3 currently down to her baseline at 1.2. 5. Hypokalemia, resolved. Potassium was normal. PLAN: We will continue patient in the hospital. Continue antibiotics. Continue supportive care. Again, discussed with son DNR, hospice care versus continue to treat in the hospital. Plan will continue in the hospital. Continue IV fluids. We will add to her liquids and will follow. Expect that will be discharged home over the next 2 or 3 days. cc: Billy Crowe MD [facility]TD[facility]
[2018-08-27] MEDS: FLAGYL 500 MG/NS 500 MG/100 ML IVPB IV SCH ×4 (00:21→17:30)
[2018-08-27] MEDS: DILAUDID IV PRN ×3 (02:47→15:26)
[2018-08-27] MEDS: 1/2 NS 1,000 ML IV SCH ×3 (03:06→22:05)
[2018-08-27] MEDS: HEPARIN SUBQ SCH ×2 (05:30→16:28)
[2018-08-27 07:29] LABS: HEMATOCRIT 32.7 % (37.0-47.0); HEMOGLOBIN 10.3 g/dL (12.0-16.0); MCH 29.3 PG (27-31); MCHC 31.5 g/dL (33-37); MCV 93.2 FL (81-99); MPV 10.2 FL (7.4-10.4); RBC 3.51 XMIL (4.2-5.4); RDW 16.5 % (11.5-14.5); WBC 17.49 X1000 (4.8-10.8)
[2018-08-27 08:07] LABS: CALCIUM 8.1 mg/dL (8.8-10.2); POTASSIUM 4.1 mmol/L (3.5-5.1)
[2018-08-27] MEDS ORDERED: OFIRMEV 1000 MG/ISOTONIC SOLN 1,000 MG/100 ML BOTTLE IV PRN (08:32)
--- NOTE | 2018-08-27 11:40 | Diag Imaging Result Doc PS360 ---
EXAM: CT ABD/PELVIS W/IV CONT ONLY - 08/27/2018 HISTORY: pain TECHNIQUE: CT abdomen/pelvis with intravenous contrast. No oral contrast administered per request of the referring provider. COMPARISON: 08/21/2018 CT abdomen/pelvis without contrast FINDINGS: There has been development of bilateral pleural effusions with adjacent dependent/compressive atelectasis. There has been development of a small to medium amount ascites. There is diffuse wall thickening along the colon, with enhancement of the mucosa. This is consistent with diffuse colitis. There is infiltration of pericolic fat. The colitis appears grossly similar to the prior study, allowing for differences in technical factors (the prior exam did not have administered intravenous contrast). There is retained fluid in the lumen of the colon. There is no abscess identified. There is no free intraperitoneal air identified. There is no evidence of small bowel obstruction. There are no acute changes identified in the liver, spleen, adrenal glands, pancreas, or kidneys. The gallbladder is more distended compared to prior. There are no calcified gallstones seen. There is a Villa catheter in the urinary bladder. IMPRESSION: Relatively severe diffuse colitis. No evidence of abscess. No free air. Development of bilateral pleural effusions, with adjacent dependent/compressive atelectasis. Development of small to medium amount of ascites. This exam was performed using automated exposure control, adjustment of mA or kV according to patient size, and/or use of iterative reconstruction technique. Electronically signed by Balaji Marshall 08/27/2018 11:37 AM
[2018-08-27] MEDS: LEVAQUIN 500 MG/D5W 500 MG/100 ML IVPB IV SCH (14:22)
[2018-08-28] MEDS: FLAGYL 500 MG/NS 500 MG/100 ML IVPB IV SCH ×3 (00:22→11:40)
--- NOTE | 2018-08-28 00:23 | PROGRESS NOTE ---
DATE: 08/27/2018 SUBJECTIVE: Patient is more alert, however, does not follow commands, does not answer questions. She is not alert enough to start eating or drinking. PHYSICAL EXAMINATION: Vital Signs: Temperature 98 degrees, pulse 79, respiratory 20, BP 102/57. General: Patient is awake, alert, currently in no respiratory distress. She is lying calmly in the bed. Does not appear to be in pain. However, once aroused then she does grimace, but is unclear if the grimacing is worse when palpating her abdomen versus her shoulder or leg. HEENT: Normocephalic. Neck: Supple. Cardiovascular: Regular rate. No murmurs. Chest: Clear and unlabored. Abdomen: Soft, nondistended, appears relatively nontender although difficult to assess. ASSESSMENT: 1. Klebsiella pneumoniae urinary tract infection resistant to ampicillin, otherwise pansensitive. 2. Metabolic encephalopathy. 3. Chronic dementia. 4. Do Not Resuscitate 1. 5. Sepsis secondary to urinary tract infection. 6. Acute renal failure, resolved. Creatinine is currently down to 1.2. 7. Leukocytosis, improved. White count continues to slowly improve at 19. 8. Hypernatremia. 9. Metabolic acidosis. PLAN: We will continue patient in the hospital. Continue IV fluids for now, antibiotics and we will follow. The patient will likely be discharged back to rehab on Friday with hospice care. The family declines further intervention of feeding tube or IV nutrition. cc: Billy Crowe MD
[2018-08-28] MEDS: DILAUDID IV PRN ×2 (00:50→10:12)
[2018-08-28] MEDS: HEPARIN SUBQ SCH (05:01)
[2018-08-28 06:15] LABS: HEMATOCRIT 33.5 % (37.0-47.0); HEMOGLOBIN 10.6 g/dL (12.0-16.0); MCH 29.3 PG (27-31); MCHC 31.6 g/dL (33-37); MCV 92.5 FL (81-99); RBC 3.62 XMIL (4.2-5.4); RDW 16.8 % (11.5-14.5); WBC 15.91 X1000 (4.8-10.8)
[2018-08-28 06:31] LABS: CALCIUM 7.8 mg/dL (8.8-10.2); CREATININE 0.9 mg/dL (0.5-0.9); POTASSIUM 3.8 mmol/L (3.5-5.1)
[2018-08-28] MEDS: 1/2 NS 1,000 ML IV SCH (10:12)
--- NOTE | 2018-08-28 11:05 | DISCHARGE SUMMARY ---
ADMISSION DATE: 08/21/2018 DISCHARGE DATE: 08/28/2018 DIAGNOSES: 1. Colitis. 2. Klebsiella pneumoniae urinary tract infection resistant to ampicillin. 3. Metabolic encephalopathy. 4. Chronic dementia. 5. Sepsis secondary to urinary tract infection. 6. Acute renal failure, resolved. 7. Leukocytosis, improving. 8. Do not resuscitate level 1. 9. Hypernatremia. DIAGNOSTICS: 1. 08/21/2018, CT of the head revealed no hemorrhage, mild atrophy. 2. 08/21/2018, CT of the abdomen and pelvis without contrast revealed diffuse colitis, small loops appear normal. Trace fluid. The uterus has been removed. No pelvic mass. The urinary bladder is not distended. 3. 08/21/2018, renal ultrasound reveals no visible abnormality and no hydronephrosis. 4. 08/27/2018, CT of the abdomen and pelvis with IV contrast reveals rather severe diffuse colitis with no evidence of abscess and no free air. MICROBIOLOGY: 1. Blood cultures revealed no growth after 5 days x2 cultures. 2. Urine culture revealed Klebsiella pneumoniae. HOSPITAL COURSE: Ms. Cho presented to the emergency room with nausea, vomiting, and diarrhea for 3 days. She was found to have diffuse colitis as well as being in acute kidney injury. She was treated with Zosyn and Flagyl as well as IV hydration. CT scan revealed diffuse colitis for which she received antibiotic coverage of Zosyn and Flagyl. Repeat CT scan 08/28/2018 revealed relatively severe diffuse colitis. She was also found to have a Klebsiella pneumoniae urinary tract infection for which she is receiving Levaquin. She was found to be in acute kidney injury with a creatinine of 1.5 on admission with hydration. Today her creatinine is down to 0.9. She did come in to the hospital with altered mental status, being responsive to painful stimuli. This has slowly improved somewhat and today she is more alert. She does not follow commands or answer questions, but neither is she alerted enough to eat or drink. On the , Dr. Crowe discussed with the family DNR hospice care and comfort care. They did ultimately make her a DNR level 1. [facility] has met with the patient as well as [facility] and it was decided that the patient would transfer back to [facility] today under the care of [facility]. DISCHARGE PHYSICAL EXAMINATION: Vital Signs: Blood pressure is 108/57, heart rate of 82, respirations 16, temperature 98.5 degrees, room air saturation 99%. Cardiovascular: Regular rate and rhythm. S1 and S2 are appreciated. Pulmonary: Breath sounds are diminished throughout. Chest rises and falls symmetrically with respiration. Gastrointestinal: Abdomen is soft, nondistended with bowel sounds in all 4 quadrants. Neurologic: She is awake. She is nonverbal. She does have episodes of crying. DISCHARGE MEDICATIONS: 1. Levaquin 500 mg p.o. daily for 5 days. 2. Nuedexta 1 daily. 3. Zoloft 50 mg p.o. daily. 4. Exelon patch 13.3 daily. 5. Phenergan 25 mg p.o. p.r.n. nausea. 6. Zofran 4 mg p.o. p.r.n. nausea. 7. Morphine 20 mg. 8. Amlodipine/benazepril 5/40 one daily. 9. Lipitor 40 mg p.o. at bedtime. 10. Pepto-Bismol 50 mL q.4-6 hours p.r.n. 11. Cyanocobalamin 1000 mcg IM as directed. 12. Colace 100 mg p.o. daily. 13. Ferrous sulfate 325 mg p.o. t.i.d. 14. Hydrochlorothiazide 12.5 mg p.o. daily. 15. [place] 5/325 one q.6 hours p.r.n. 16. Lactobacillus 0.5 mg b.i.d. 17. Memantine 28 mg p.o. daily. 18. Flagyl 500 mg p.o. t.i.d. 19. Omeprazole 40 mg p.o. daily. DISPOSITION: She is being discharged back to [facility] under the care of [facility]. Family members are present. TIME SPENT: This is a greater than 30 minute discharge. Dictated by CALE Mejía for Billy Crowe MD This chart was documented by, CALE Mejía and accurately reflects the services performed, treatment plan and medical decisions as attested by the providers signature Billy Crowe MD. cc: CALE Mejía MD
[2018-08-28 11:45] VITALS: BP 114/51
[2018-08-28] MEDS: LEVAQUIN 500 MG/D5W 500 MG/100 ML IVPB IV SCH (12:59)
--- NOTE | 2018-08-29 19:03 | DISCHARGE SUMMARY ---
ADMISSION DATE: 08/21/2018 DISCHARGE DATE: 08/28/2018 DISCHARGE ADDENDUM: The patient on discharge is much more alert and awake than she has been. She still does not answer questions nor follow commands. She is starting to drink a little bit better. Discussed with the son again the likelihood that she will become volume depleted, that she is drinking, but is not drinking very much. We will discharge her to rehab on hospice. Please see full note. cc: Billy Crowe MD
--- NOTE | 2018-09-02 16:14 | ED EKG INTERP ---
This chart was entered by Beba Mccormack Scribe, acting as scribe for Neymar Pedroza MD. EKG Interpretation - EKG Time of EKG reading by physician:: 00:54 EKG Read and Signed by:: Neymar Pedroza EKG Interpretation (*Must complete 3 of following elements*): Abnormal Rate: 81 Rhythm: sinus rhytm with PACs [place]: normal QRS: other (pacs) [place] Interval: normal ST Wave: normal Attestation - Physician/ JAREN Attestation Patient care was provided by Advanced Practice Provider:: No The physician spent face to face time with patient:: Yes Advanced Practice Provider documentation review:: Supervising physician onsite and consulted in the evaluation and care of this patient. The physician did have a face to face encounter with the patient. This chart was documented by the indicated scribe, (Beba Mccormack Scribe) and accurately reflects the services I performed and decisions made by me, Neymar Pedroza MD, as attested by the provider's signature.
== END 2018-08-28 15:50 | disposition hospice, home (50) | DRG 871 ==
LOC: P.ED 23:48 → SUATTDRO 08-21 09:19 → P.EDIPHOLD 08-21 09:19
PROVIDERS: ATTEND Family Medicine
CPT/HCPCS: 36415; 70450; 71010; 71045; 74176; 74177; 76770; 80048; 80053; 80196; 80307; 80324; 80329; 81001; 82003; 82009; 82570; 83605; 83735; 84300; 84540; 85025; 85027; 85610; 87040; 87077; 87088; 87186; 87205; 93005; 96361; 96365; 96367; 96372; 99285; 99291; A9270; G0480; G6038; G6039; J0131; J0696; J1170; J1644; J1956; J2270; J2543; J7030; J7040; Q9967; S0030